=== PATIENT | female | born 1990 ===

== ENCOUNTER 2023-02-01 09:58 | Emergency (ER) | payer OTHER ==
[~2023-02-01] VITALS: Ht 154.9 cm; Wt 73.5 kg
[~2023-02-01 09:58] MED LIST: CEPHALEXIN500 MG PO; MIRALAX17 GM PO
[2023-02-01] MEDS ORDERED: VISTARIL25 MG PO (10:23)
[2023-02-01] MEDS ORDERED: ZOLOFT50 MG PO (10:23)
[2023-02-01] MEDS ORDERED: ZITHROMAX TRI-500 MG PO (12:37)
== END 2023-02-01 13:38 | disposition home or self-care (01) ==
LOC: ER 09:58
DX: O99.512 Diseases of the respiratory system complicating pregnancy, second trimester (principal); J06.9 Acute upper respiratory infection, unspecified; Z3A.26 26 weeks gestation of pregnancy; Z91.013 Allergy to seafood; Z20.822 Contact with and (suspected) exposure to COVID-19